=== PATIENT | female | born 1955 ===

== ENCOUNTER → 2017-12-06 | Outpatient (CLI) | payer OTHER | LOC: CIMAGING 11:26 | PROVIDERS: ATTEND Family Medicine | DX: S82.431A Displaced oblique fracture of shaft of right fibula, initial encounter for closed fracture (principal); S92.251A Displaced fracture of navicular [scaphoid] of right foot, initial encounter for closed fracture | CPT/HCPCS: 73590-PO; 73610-PO; 73630-PO ==